=== PATIENT | male | born 1945 | race American Indian/Alaskan Native ===

== ENCOUNTER 2019-04-12 10:50 | Emergency (ER) | payer MEDICARE ==
--- NOTE | 2019-04-12 11:17 | Emergency Department Report ---
Blank Doc - Documentation Documentation: 73-year-old male that presents with PEG tube removed. This initial assessment/diagnostic orders/clinical plan/treatment(s) is/are subject to change based on patient's health status, clinical progression and re- assessment by fellow clinical providers in the ED. Further treatment and workup at subsequent clinical providers discretion. Patient/guardians urged not to elope from the ED as their condition may be serious if not clinically assessed and managed. Initial orders include: 1- Patient sent to MAIN ED for further evaluation and treatment 2- labs
[2019-04-12 14:00] VITALS: BP 130/85
--- NOTE | 2019-04-12 14:00 | XRay Report ---
X-RAY G-TUBE STUDY HISTORY: G-tube placement FINDINGS: [employer] Remover film of the abdomen demonstrates a G-tube overlying the left upper quadrant. A second image was obtained following injection of contrast through the G-tube. The contrast outlines the stomach and p roximal small bowel loops. There is no evidence for obstruction or extravasation. IMPRESSION: The G-tube terminates in the mid stomach. No acute abnormality is detected. Signer Name: Dell Brand Jr, MD Signed: 04/12/2019 1:56 PM Workstation Name: [id number]
--- NOTE | 2019-04-12 14:22 | Emergency Department Report ---
ED General Adult HPI - General Chief complaint: Medical Clearance Stated complaint: FEEDING TUBE CAME OUT Time Seen by Provider: 04/12/19 11:16 Source: patient Mode of arrival: Wheelchair Limitations: Physical Limitation - History of Present Illness Initial comments: 73-year-old male with a history of previous stroke with chronic dysphagia and G- tube placements as 1998 presents to the hospital with dislodged G-tube. Patient went to bed with ET tube in position and woke up with G-tube out of place. brought G tube to the hospital but it does not have a size on the tube. Patient does not take any nutrients or liquids by mouth. No pain reported. The: Dr. Abilio Kimbrough. - Related Data Home Medications Medication Instructions Recorded Confirmed Last Taken Atorvastatin (Nf) [Lipitor (Nf)] 20 mg PO QDAY 05/14/14 08/28/16 06/27/15 Clopidogrel [Plavix] 75 mg PO QDAY 05/14/14 08/28/16 06/27/15 Metoprolol [Lopressor TAB] 25 mg PO BID 05/14/14 08/28/16 06/27/15 hydroCHLOROthiazide 25 mg PO QDAY 05/14/14 08/28/16 06/27/15 [Hydrochlorothiazide] metFORMIN [Glucophage] 850 mg PO BID 05/14/14 08/28/16 06/27/15 Amlodipine Besylate/Benazepril 1 tab PO DAILY 08/28/16 08/28/16 Unknown [Amlodipine-Benazepril 10-20 mg] Nutrit Supp/Inulin/Fos/Fiber 1 ml FEEDTUBE 5XD 08/28/16 08/28/16 Unknown [Replete with Fiber Liquid] Previous Rx's Medication Instructions Recorded Last Taken Type Insulin Regular, Human [HumuLIN R] 0 units SUB-Q Q6HR units 09/02/16 Unknown Rx levoFLOXacin [Levaquin TAB] 500 mg PO QDAY #10 tablet 09/02/16 Unknown Rx Allergies Allergy/AdvReac Type Severity Reaction Status Date / Time No Known Allergies Allergy Verified 05/20/14 10:08 ED Review of Systems ROS: Stated complaint: FEEDING TUBE CAME OUT Other details as noted in HPI Comment: All other systems reviewed and negative ED Past Medical Hx - Past Medical History Hx Hypertension: Yes Hx CVA: Yes (1999) Hx Heart Attack/AMI: Yes (1999) Hx Congestive Heart Failure: No Hx Diabetes: Yes Hx Renal Disease: No Hx Asthma: No Hx COPD: No Additional medical history: [place] - Surgical History Hx Open Heart Surgery: Yes Additional Surgical History: g-tube, triple bypass - Social History Smoking Status: Never Smoker Substance Use Type: None - Medications Home Medications: Home Medications Medication Instructions Recorded Confirmed Last Taken Type Atorvastatin (Nf) [Lipitor (Nf)] 20 mg PO QDAY 05/14/14 08/28/16 06/27/15 History Clopidogrel [Plavix] 75 mg PO QDAY 05/14/14 08/28/16 06/27/15 History Metoprolol [Lopressor TAB] 25 mg PO BID 05/14/14 08/28/16 06/27/15 History hydroCHLOROthiazide 25 mg PO QDAY 05/14/14 08/28/16 06/27/15 History [Hydrochlorothiazide] metFORMIN [Glucophage] 850 mg PO BID 05/14/14 08/28/16 06/27/15 History Amlodipine Besylate/Benazepril 1 tab PO DAILY 08/28/16 08/28/16 Unknown History [Amlodipine-Benazepril 10-20 mg] Nutrit Supp/Inulin/Fos/Fiber 1 ml FEEDTUBE 5XD 08/28/16 08/28/16 Unknown History [Replete with Fiber Liquid] Insulin Regular, Human [HumuLIN R] 0 units SUB-Q Q6HR units 09/02/16 Unknown Rx levoFLOXacin [Levaquin TAB] 500 mg PO QDAY #10 tablet 09/02/16 Unknown Rx ED Physical Exam - General Limitations: Physical Limitation - Other Other exam information: General: No acute distress Head: Atraumatic Eyes: normal appearance ENT: Moist mucous membranes Neck: Normal appearance, no midline tenderness Chest: Clear to auscultation bilaterally CV: Regular rate and rhythm Abdomen: Soft, normal bowel sounds, nontender, nondistended, no rebound or guarding, Left upper quadrant feeding tube stoma without active drainage or cellulitis Back: Normal inspection. Extremity: Normal inspection infection, full range of motion Neuro: Alert, dysarthria, chronic dysphagia, right-sided weakness compared to the left, nonambulatory and wheelchair bound Psych: Appropriate behavior Skin: No rash ED Course Vital Signs 04/12/19 04/12/19 11:08 13:59 Temperature 98.4 F 97.7 F Pulse Rate 88 75 Respiratory 18 12 Rate Blood Pressure 142/78 Blood Pressure 130/85 [Left] O2 Sat by Pulse 100 Oximetry - Feeding Tube Replacement Reason for Replacement: fell out Initial Tube Inserted: greater than 4 weeks Type of Tube: G-J Tube Use of Tube: medications and feeding Insertion Site Prior to Procedure: clean Tube Used for Reinsertion: other (none) Guatemalan Tube Size (F): 22 Balloon Size (mls): 9 Verification of Placement: KUB, gastrograffin injection Tube Secured by: tape/dressing, G-tube attachment device Patient Tolerated Procedure: well Complications: other (none) ED Medical Decision Making - Radiology Data Radiology results: report reviewed (g tube study shows good position read by radiologist) - Medical Decision Making 22 Guatemalan G-tube placed and stoma without difficulties. Placement confirmed with Gastrografin study a KUB. Patient to be discharged home. - Differential Diagnosis G-tube dislodgment Critical Care Time: No Critical care attestation.: If time is entered above; I have spent that time in minutes in the direct care of this critically ill patient, excluding procedure time. ED Disposition Clinical Impression: Dislodged gastrostomy tube, Encounter for feeding tube placement, Dysphagia as late effect of cerebrovascular accident (CVA) Disposition: DC-01 TO HOME OR SELFCARE Is pt being admited?: No Does the pt Need Aspirin: No Condition: Stable Instructions: How to Use and Care for Your PEG Tube (ED) Additional Instructions: Follow-up with your doctor or doctor/clinic provided. Return if symptoms worsen as indicated by your discharge instructions. Referrals: your, doctor [Other] - as needed Time of Disposition: 14:23
== END 2019-04-12 15:01 | disposition home or self-care (01) ==
LOC: ED 10:50
DX: K94.23 Gastrostomy malfunction (principal); I69.391 Dysphagia following cerebral infarction; R13.10 Dysphagia, unspecified; E11.9 Type 2 diabetes mellitus without complications; Z79.899 Other long term (current) drug therapy; Z79.84 Long term (current) use of oral hypoglycemic drugs; Z79.4 Long term (current) use of insulin
CPT/HCPCS: 43762; 74018; 99283; Q9967

== ENCOUNTER 2020-07-08 09:13 | Emergency (ER) | payer MEDICARE ==
[2020-07-08 09:23] VITALS: BP 142/65
[2020-07-08] MEDS ORDERED: SODIUM CHLORIDE IRRI 500 ML 500 ML IR ONE (09:24)
[2020-07-08] MEDS ORDERED: SODIUM CHLORIDE 0.9% IRR 500 ML BOTTLE IR ONE (09:30)
--- NOTE | 2020-07-08 09:34 | Emergency Department Report ---
ED General Adult HPI - General Chief complaint: Tube Replacement Stated complaint: FEEDING TUBE CLOGGED PUI?: No Time Seen by Provider: 07/08/20 09:32 Source: patient Mode of arrival: Ambulatory Limitations: No Limitations - History of Present Illness Initial comments: Patient is a 74-year-old -[place] male in his usual state of health comes to the emergency department accompanied by his daughter with complaints that his PEG tube is obstructed. Patient daughter states that she went to give him his medications this morning and cannot give them. Patient has no other complaints. Patient last saw his primary care 2 weeks ago. -: Sudden Improves with: none Worsens with: none Associated Symptoms: denies other symptoms - Related Data Home Medications Medication Instructions Recorded Confirmed Last Taken Atorvastatin (Nf) [Lipitor (Nf)] 20 mg PO QDAY 05/14/14 08/28/16 06/27/15 Clopidogrel [Plavix] 75 mg PO QDAY 05/14/14 08/28/16 06/27/15 Metoprolol [Lopressor TAB] 25 mg PO BID 05/14/14 08/28/16 06/27/15 hydroCHLOROthiazide 25 mg PO QDAY 05/14/14 08/28/16 06/27/15 [Hydrochlorothiazide] metFORMIN [Glucophage] 850 mg PO BID 05/14/14 08/28/16 06/27/15 Amlodipine Besylate/Benazepril 1 tab PO DAILY 08/28/16 08/28/16 Unknown [Amlodipine-Benazepril 10-20 mg] Nutrit Supp/Inulin/Fos/Fiber 1 ml FEEDTUBE 5XD 08/28/16 08/28/16 Unknown [Replete with Fiber Liquid] Previous Rx's Medication Instructions Recorded Last Taken Type Insulin Regular, Human [HumuLIN R] 0 units SUB-Q Q6HR units 09/02/16 Unknown Rx levoFLOXacin [Levaquin TAB] 500 mg PO QDAY #10 tablet 09/02/16 Unknown Rx Allergies Allergy/AdvReac Type Severity Reaction Status Date / Time No Known Allergies Allergy Verified 05/20/14 10:08 ED Review of Systems ROS: Stated complaint: FEEDING TUBE CLOGGED Other details as noted in HPI Comment: All other systems reviewed and negative ED Past Medical Hx - Past Medical History Previous Medical History?: Yes Hx Hypertension: Yes Hx CVA: Yes (1999) Hx Heart Attack/AMI: Yes (1999) Hx Congestive Heart Failure: No Hx Diabetes: Yes Hx Renal Disease: No Hx Asthma: No Hx COPD: No Additional medical history: [place] - Surgical History Past Surgical History?: Yes Hx Open Heart Surgery: Yes Additional Surgical History: g-tube, triple bypass - Family History Family history: no significant - Social History Smoking Status: Never Smoker Substance Use Type: None - Medications Home Medications: Home Medications Medication Instructions Recorded Confirmed Last Taken Type Atorvastatin (Nf) [Lipitor (Nf)] 20 mg PO QDAY 05/14/14 08/28/16 06/27/15 History Clopidogrel [Plavix] 75 mg PO QDAY 05/14/14 08/28/16 06/27/15 History Metoprolol [Lopressor TAB] 25 mg PO BID 05/14/14 08/28/16 06/27/15 History hydroCHLOROthiazide 25 mg PO QDAY 05/14/14 08/28/16 06/27/15 History [Hydrochlorothiazide] metFORMIN [Glucophage] 850 mg PO BID 05/14/14 08/28/16 06/27/15 History Amlodipine Besylate/Benazepril 1 tab PO DAILY 08/28/16 08/28/16 Unknown History [Amlodipine-Benazepril 10-20 mg] Nutrit Supp/Inulin/Fos/Fiber 1 ml FEEDTUBE 5XD 08/28/16 08/28/16 Unknown History [Replete with Fiber Liquid] Insulin Regular, Human [HumuLIN R] 0 units SUB-Q Q6HR units 09/02/16 Unknown Rx levoFLOXacin [Levaquin TAB] 500 mg PO QDAY #10 tablet 09/02/16 Unknown Rx ED Physical Exam - General Limitations: No Limitations General appearance: alert, in no apparent distress - Head Head exam: Present: atraumatic, normocephalic - Eye Eye exam: Present: normal appearance - ENT ENT exam: Present: mucous membranes moist - Neck Neck exam: Present: normal inspection - Respiratory Respiratory exam: Present: normal lung sounds bilaterally. Absent: respiratory distress - Cardiovascular Cardiovascular Exam: Present: regular rate, normal rhythm. Absent: systolic murmur, diastolic murmur, rubs, gallop - GI/Abdominal GI/Abdominal exam: Present: soft, normal bowel sounds, other - Rectal Rectal exam: Present: deferred - Neurological Exam Neurological exam: Present: alert - Psychiatric Psychiatric exam: Present: other - Skin Skin exam: Present: warm, dry, intact. Absent: rash ED Course Vital Signs 07/08/20 09:20 Temperature 98.6 F Pulse Rate 67 Respiratory 16 Rate Blood Pressure 142/65 O2 Sat by Pulse 97 Oximetry ED Medical Decision Making - Medical Decision Making PEG tube was milked and irrigated. PEG tube patent. Patient and family educated on keeping the tube clear. Patient being discharged to home with PCP follow-up. Family verbalizes understanding. Vital Signs 07/08/20 09:20 Temperature 98.6 F Pulse Rate 67 Respiratory 16 Rate Blood Pressure 142/65 O2 Sat by Pulse 97 Oximetry - Differential Diagnosis PEG obstruction Critical care attestation.: If time is entered above; I have spent that time in minutes in the direct care of this critically ill patient, excluding procedure time. ED Disposition Clinical Impression: Clogged feeding tube Disposition: DC-01 TO HOME OR SELFCARE Is pt being admited?: No Does the pt Need Aspirin: No Condition: Stable Additional Instructions: follow up with pcp for tube change Time of Disposition: 09:33
== END 2020-07-08 09:57 | disposition home or self-care (01) ==
LOC: ED 09:13
DX: K94.23 Gastrostomy malfunction (principal); I10 Essential (primary) hypertension; I25.2 Old myocardial infarction; E11.9 Type 2 diabetes mellitus without complications; Z86.73 Personal history of transient ischemic attack (TIA), and cerebral infarction without residual deficits; Z79.899 Other long term (current) drug therapy
CPT/HCPCS: 99282

== ENCOUNTER 2021-04-14 20:00 | Emergency (ER) | payer MEDICARE ==
--- NOTE | 2021-04-14 21:18 | Emergency Department Report ---
ED General Adult HPI - General Chief complaint: Medical Clearance Stated complaint: tube feed displaced Time Seen by Provider: 04/14/21 21:10 Source: patient Mode of arrival: Ambulatory Limitations: No Limitations - History of Present Illness Initial comments: Chief complaint: "His feeding tube came out." HPI: This is a 75-year-old male with history of CAD status CABG, CVA in 1998, dysphagia, gastrostomy, hypertension who presents with dislodged feeding tube which occurred 6 PM. Patient's has a 20 Lebanese feeding tube in a plastic bag. No other concerns. Gastrostomy has been present since 1998. -: Sudden, This evening Consistency: other (Feeding tube dislodged) Improves with: none Worsens with: none Associated Symptoms: denies other symptoms - Related Data Home Medications Medication Instructions Recorded Confirmed Last Taken Atorvastatin (Nf) [Lipitor (Nf)] 20 mg PO QDAY 05/14/14 08/28/16 06/27/15 Clopidogrel [Plavix] 75 mg PO QDAY 05/14/14 08/28/16 06/27/15 Metoprolol [Lopressor TAB] 25 mg PO BID 05/14/14 08/28/16 06/27/15 hydroCHLOROthiazide 25 mg PO QDAY 05/14/14 08/28/16 06/27/15 [Hydrochlorothiazide] metFORMIN [Glucophage] 850 mg PO BID 05/14/14 08/28/16 06/27/15 Amlodipine Besylate/Benazepril 1 tab PO DAILY 08/28/16 08/28/16 Unknown [Amlodipine-Benazepril 10-20 mg] Nutrit Supp/Inulin/Fos/Fiber 1 ml FEEDTUBE 5XD 08/28/16 08/28/16 Unknown [Replete with Fiber Liquid] Previous Rx's Medication Instructions Recorded Last Taken Type Insulin Regular, Human [HumuLIN R] 0 units SUB-Q Q6HR units 09/02/16 Unknown Rx levoFLOXacin [Levaquin TAB] 500 mg PO QDAY #10 tablet 09/02/16 Unknown Rx Allergies Allergy/AdvReac Type Severity Reaction Status Date / Time No Known Allergies Allergy Verified 05/20/14 10:08 ED Review of Systems ROS: Stated complaint: tube feed displaced Other details as noted in HPI Comment: Unobtainable due to pts medical conditions (Aphasic) ED Past Medical Hx - Past Medical History Previous Medical History?: Yes Hx Hypertension: Yes Hx CVA: Yes (1999) Hx Heart Attack/AMI: Yes (1999) Hx Congestive Heart Failure: No Hx Diabetes: Yes Hx Renal Disease: No Hx Asthma: No Hx COPD: No Additional medical history: [place] - Surgical History Past Surgical History?: Yes Hx Open Heart Surgery: Yes Additional Surgical History: g-tube, triple bypass - Social History Smoking Status: Never Smoker Substance Use Type: None - Medications Home Medications: Home Medications Medication Instructions Recorded Confirmed Last Taken Type Atorvastatin (Nf) [Lipitor (Nf)] 20 mg PO QDAY 05/14/14 08/28/16 06/27/15 History Clopidogrel [Plavix] 75 mg PO QDAY 05/14/14 08/28/16 06/27/15 History Metoprolol [Lopressor TAB] 25 mg PO BID 05/14/14 08/28/16 06/27/15 History hydroCHLOROthiazide 25 mg PO QDAY 05/14/14 08/28/16 06/27/15 History [Hydrochlorothiazide] metFORMIN [Glucophage] 850 mg PO BID 05/14/14 08/28/16 06/27/15 History Amlodipine Besylate/Benazepril 1 tab PO DAILY 08/28/16 08/28/16 Unknown History [Amlodipine-Benazepril 10-20 mg] Nutrit Supp/Inulin/Fos/Fiber 1 ml FEEDTUBE 5XD 08/28/16 08/28/16 Unknown History [Replete with Fiber Liquid] Insulin Regular, Human [HumuLIN R] 0 units SUB-Q Q6HR units 09/02/16 Unknown Rx levoFLOXacin [Levaquin TAB] 500 mg PO QDAY #10 tablet 09/02/16 Unknown Rx ED Physical Exam - General Limitations: No Limitations General appearance: alert, in no apparent distress - Head Head exam: Present: atraumatic, normocephalic - ENT ENT exam: Present: mucous membranes moist - Respiratory Respiratory exam: Absent: respiratory distress - Extremities Exam Extremities exam: Present: pedal edema - Neurological Exam Neurological exam: Present: alert - Psychiatric Psychiatric exam: Present: flat affect - Skin Skin exam: Present: warm, dry, normal color ED Course Vital Signs 04/14/21 21:04 Temperature 98 F Pulse Rate 98 H Respiratory 18 Rate Blood Pressure 161/80 [Right] O2 Sat by Pulse 98 Oximetry - Feeding Tube Replacement Reason for Replacement: fell out Initial Tube Inserted: greater than 4 weeks Type of Tube: gastrostomy Use of Tube: medications and feeding Insertion Site Prior to Procedure: clean Tube Used for Reinsertion: other (20 Lebanese gastrostomy tube) Lebanese Tube Size (F): 20 Balloon Size (mls): 10 Verification of Placement: KUB, gastrograffin injection Tube Secured by: tape/dressing Patient Tolerated Procedure: well ED Medical Decision Making - Radiology Data Radiology results: report reviewed Patient Name: ANALY CRENSHAW Gender: Male Date of : 1945 Referring Provider: CARLOS HANDY Organization: [facility] Accession Number: [id number] Requested Date: April 14, 2021 21:49 Report Status: Final Requested Procedure: 1 Procedure Description: XR g-tube study Modality: XR Findings Reporting MD: Trent Perez Dictation Time: April 14, 2021 21:40 Accounts Payable Specialist: Not available Mortgage Lender Date: ABDOMEN 1 VIEW(S) INDICATION / CLINICAL INFORMATION: Gastrostomy tube replacement. COMPARISON: None available. FINDINGS: TUBES / LINES: Gastric tube overlies the distal stomach and has been injected. Contrast passes into the small bowel where noninflamed duodenal diverticula are noted. BOWEL GAS PATTERN: Large volume stool. ADDITIONAL FINDINGS: 2 IVC filters. IVC Filter Recommendation: IVC filters should be removed if possible when they are no longer clinically necessary. (1) Refer to the established IVC filter management plan; (2) If there is no established plan for the patient's IVC filter, consider referral to interventional/vascular clinician on a nonemergent basis for evaluation. Signer Name: Trent Perez MD Signed: 04/14/2021 9:40 PM Workstation Name: [id number] - Medical Decision Making Gastrostomy tube replaced successfully,: G-tube study confirmed appropriate placement. Referred to GI specialist as needed Critical care attestation.: If time is entered above; I have spent that time in minutes in the direct care of this critically ill patient, excluding procedure time. ED Disposition Clinical Impression: Dislodged gastrostomy tube Disposition: HOME / SELF CARE / HOMELESS Is pt being admited?: No Does the pt Need Aspirin: No Condition: Fair Instructions: Gastrostomy Tube Replacement, Gastrostomy Tube Replacement, Care After Referrals: REYNA MORA MD [Staff Physician] - as needed
--- NOTE | 2021-04-14 22:44 | XRay Report ---
ABDOMEN 1 VIEW(S) INDICATION / CLINICAL INFORMATION: Gastrostomy tube replacement. COMPARISON: None available. FINDINGS: TUBES / LINES: Gastric tube overlies the distal stomach and has been injected. Contrast passes into t he small bowel where noninflamed duodenal diverticula are noted. BOWEL GAS PATTERN: Large volume stool. ADDITIONAL FINDINGS: 2 IVC filters. IVC Filter Recommendation: IVC filters should be removed if possible when they are no longer clinical ly necessary. (1) Refer to the established IVC filter management plan; (2) If there is no established plan for the patient's IVC filter, consider referral to interventional/vascular clinician on a nonem ergent basis for evaluation. Signer Name: Trent Perez MD Signed: 04/14/2021 10:40 PM Workstation Name: [id number]
[2021-04-14 23:11] VITALS: BP 126/83
== END 2021-04-14 23:12 | disposition home or self-care (01) ==
LOC: ED 20:00
DX: K94.23 Gastrostomy malfunction (principal); I10 Essential (primary) hypertension; E11.9 Type 2 diabetes mellitus without complications; Z98.890 Other specified postprocedural states; Z79.899 Other long term (current) drug therapy; Z79.4 Long term (current) use of insulin; Y84.8 Other medical procedures as the cause of abnormal reaction of the patient, or of later complication, without mention of misadventure at the time of the procedure
CPT/HCPCS: 43762; 74018; 99283; Q9967; 99282

== ENCOUNTER 2021-07-19 10:24 | Emergency (ER) | payer MEDICARE ==
[2021-07-19] MEDS ORDERED: NORepinephrine/NS 8 MG-250 ML 0 MG/0 ML INFUS..BTL IV ONE (10:44)
--- NOTE | 2021-07-19 10:54 | Emergency Department Report ---
HPI - General Time Seen by Provider: 07/19/21 10:47 - HPI HPI: Room 21 The patient is a 76-year-old male present with a chief complaint of cardiac arrest. Per EMS the patient was witnessed by family to slumped over in his chair. EMS was called and arrived on scene at 09:51 to find the patient on the floor receiving bystander CPR. ACLS protocols were initiated and patient was intubated using a Combitube. An IO was established by EMS and they report the patient went from V. tach to V. fib and was defibrillated. Patient received 2 rounds of epinephrine prior to arrival to the ED. Upon arrival to the ED the patient was found to be in PEA. The Combitube was removed and the patient was intubated by myself using the glide scope and ACLS protocols were continued. A pulse was regained transiently several times but eventually there was no return of spontaneous circulation ED Past Medical Hx - Past Medical History Hx Hypertension: Yes Hx CVA: Yes (1999) Hx Heart Attack/AMI: Yes (1999) Hx Diabetes: Yes Additional medical history: [place] - Surgical History Hx Open Heart Surgery: Yes Additional Surgical History: g-tube, triple bypass - Family History Family history: no significant - Social History Smoking Status: Unknown if ever smoked Substance Use Type: None - Medications Home Medications: Home Medications Medication Instructions Recorded Confirmed Last Taken Type Atorvastatin (Nf) [Lipitor (Nf)] 20 mg PO QDAY 05/14/14 08/28/16 06/27/15 History Clopidogrel [Plavix] 75 mg PO QDAY 05/14/14 08/28/16 06/27/15 History Metoprolol [Lopressor TAB] 25 mg PO BID 05/14/14 08/28/16 06/27/15 History hydroCHLOROthiazide 25 mg PO QDAY 05/14/14 08/28/16 06/27/15 History [Hydrochlorothiazide] metFORMIN [Glucophage] 850 mg PO BID 05/14/14 08/28/16 06/27/15 History Amlodipine Besylate/Benazepril 1 tab PO DAILY 08/28/16 08/28/16 Unknown History [Amlodipine-Benazepril 10-20 mg] Nutrit Supp/Inulin/Fos/Fiber 1 ml FEEDTUBE 5XD 08/28/16 08/28/16 Unknown History [Replete with Fiber Liquid] Insulin Regular, Human [HumuLIN R] 0 units SUB-Q Q6HR units 09/02/16 Unknown Rx levoFLOXacin [Levaquin TAB] 500 mg PO QDAY #10 tablet 09/02/16 Unknown Rx ED Review of Systems ROS: Stated complaint: CARDIAC ARREST Other details as noted in HPI Comment: Unobtainable due to pts medical conditions Physical Exam - Physical Exam Physical Exam: GENERAL: The patient is well-developed well-nourished male receiving chest compressions from EMS and being bagged via Combitube. [] HEENT: Normocephalic. Atraumatic. NECK: Supple. Trachea midline CHEST/LUNGS: No spontaneous respirations. Breath sounds equal bilaterally with bagging after intubation by myself HEART/CARDIOVASCULAR: No heart sounds. PEA on monitor ABDOMEN: Abdomen is soft, nontender. Patient has normal bowel sounds. G-tube in place SKIN: There is no rash. There is no edema. There is no diaphoresis. NEURO: GCS 3 T MUSCULOSKELETAL:There is no evidence of acute injury. Left tib-fib IO - Intubation Time Out Performed: No Sedative: none Laryngoscope: fiberoptic video scope Size: 3 Assist Device Used: fiberoptic device ET Tube Size: 8 Tube Secured Depth (cm): 24 Tube Secured Location: lips Tube Placement Confirmation: visualized tube passing t, equal breath sounds bilat, no breath sounds over epi, confirmation by capnometr Patient Tolerated Procedure: no complications Intubation Complications: none ED Medical Decision Making - Differential Diagnosis Cardiac arrest Critical care attestation.: If time is entered above; I have spent that time in minutes in the direct care of this critically ill patient, excluding procedure time. ED Disposition Clinical Impression: Cardiac arrest Disposition: 20 Is pt being admited?: No Does the pt Need Aspirin: No Condition: Poor Time of Disposition: 10:48 (Patient )
[2021-07-19] MEDS ORDERED: DOBUTamine/D5W 500 MG/250 ML 500 MG/250 ML BAG IV ONE (11:39)
== END 2021-07-19 18:17 ==
LOC: ED 10:24
DX: I46.9 Cardiac arrest, cause unspecified (principal); I10 Essential (primary) hypertension; E11.9 Type 2 diabetes mellitus without complications; I63.9 Cerebral infarction, unspecified; Z98.890 Other specified postprocedural states
CPT/HCPCS: 31500; 82962; 92950; 99285; J1250; J2354